=== PATIENT | female | born 1975 | race African-American/Black ===

== ENCOUNTER 2020-01-25 13:16 | Emergency (ER) | payer SELFPAY ==
[~2020-01-25] VITALS: Ht 149.9 cm; Wt 68.2 kg
[~2020-01-25 13:16] MED LIST: ALBUTEROL SULFAT4 M1; ALBUTEROL0.83 MG/ML IH; CLONAZEPAM1 MG PO; FLUOXETINE HCL20 MG PO; LORTAB 7.5/5001 TAB PO; SINGULAIR10 MG PO; TRAZADONE HYDR100 MG PO; ZITHROMAX Z PA250 MG PO
[2020-01-25 13:22] VITALS: BP 127/71; TEMP 99
[2020-01-25 14:03] VITALS: PULSE 79
== END 2020-01-25 14:04 | disposition home or self-care (01) ==
LOC: COL.ER 13:16
DX: R22.31 Localized swelling, mass and lump, right upper limb (principal)